=== PATIENT | male | born 1980 | race Caucasian/White ===

== ENCOUNTER 2023-03-09 01:48 | Emergency (ER) | payer OTHER, SELFPAY ==
[2023-03-09 02:00] VITALS: O2SAT 98
[2023-03-09 02:03] VITALS: BP 125/75; PULSE 70; RESP 18; TEMP 36.7; O2SAT 99; BMI 40.9
[2023-03-09 02:15] LABS: Appearance Urine Clear (Clear); Basophils Absolute Auto 0.03 K/uL (0.00-0.30); Basophils Percent Auto 0.4 % (0.0-3.0); Bilirubin Urine Negative (Negative); Blood Urine Negative (Negative); Color Urine Yellow (Yellow); Eosinophils Absolute Auto 0.19 K/uL (0.00-0.50); Eosinophils Percent Auto 2.7 % (0.0-7.0); Glucose Urine Negative (Negative); Hematocrit 45.7 % (37.0-53.0); Hemoglobin* 15.4 gm/dL (13.5-17.5); Immature Granulocytes Abs Auto 0.01 K/uL (0.00-0.30); Immature Granulocytes Pct Auto 0.1 %; Ketones Urine Negative (Negative); Leukocyte Esterase Urine Negative (Negative); Lymphocytes Absolute Auto 1.49 K/uL (0.90-2.90); Lymphocytes Percent Auto 21.3 % (20-44); Mean Corpuscular HGB Conc 34 gm/dL (32-36); Mean Corpuscular Hemoglobin 29 pg (26-34); Mean Corpuscular Volume 87 fL (80-100); Monocytes Percent Auto 7.4 % (0.0-11.0); Neutrophils Absolute Auto 4.77 K/uL (1.7-7.0); Neutrophils Percent Auto 68.1 % (42.0-72.0); Nitrite Urine Negative (Negative); Platelet Count* 299 K/uL (140-440); Protein Urine Negative (Negative); Red Blood Count 5.23 m/uL (4.30-5.90); Specific Gravity Urine <= 1.005 (1.000-1.030); Urobilinogen Urine 0.2 (0.2-1.0); White Blood Count* 7.01 K/uL (4.50-11.00)
--- NOTE | 2023-03-09 02:15 | ED.GENADULT ---
HPI - General Adult General Chief complaint: Chest Pain Stated complaint: heavy in the chest, weakness in body Time Seen by Provider: 03/09/23 02:02 History of Present Illness HPI narrative: CC: Chest Heaviness pt. with c/o since yesterday . whitney got worse about 2100 last night . denies shortness of breath, chest pain. 42-year-old man presenting to the emergency department with concern of chest pressure. This began couple evenings ago and then improved over the course of the day seemed recurred again this last evening. This was associated with a general sense of weakness. The weakness he describes as that feeling when your about to pass out. Admits that maybe he got more anxious also checking his blood pressure I believe measured 160 or 180 systolic. Does have a history of high blood pressure and about 6 months ago says was initiated on lisinopril. Does not describe renal disease or diabetes. No significant family history for cardiovascular disease. Has not had any cough or cold symptoms. Does have reflux sometimes but it has been awhile back this is not like that. At the time of this interview now he is feeling free of this pressure. Was never actually short of breath. No sense of palpitations or irregular heartbeats. 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 No radicular symptoms. No symptoms in the extremities. Related Data Home Medications Medication Instructions Recorded Confirmed lisinopril 20 mg tablet 20 mg PO DAILY 03/09/23 03/09/23 Allergies Allergy/AdvReac Type Severity Reaction Status Date / Time No Known Drug Allergies Allergy Verified 03/09/23 02:05 Review of Systems Status of ROS: Reports: 6 or more systems reviewed and unremarkable except as noted in History and below [facility] Medical History (Updated 03/09/23 @ 03:52 by Reyes Angel RN) Hypertension ?I10 - Essential (primary) hypertension (ICD-10) Surgical History (Updated 03/09/23 @ 03:52 by Reyes Angel RN) No significant past surgical history Social History Smoking Status: Never smoker Second hand tobacco smoke exposure: No How often do you have a drink containing alcohol: never How often do you have six or more drinks on one occasion: Never AUDIT-C Alcohol total score: 0 Non-prescribed substance use: denies use Exam Narrative: Exam Narrative: Is pleasant. NAD. Large man. Calm. Breathing easily. Lungs appear to be clear. Acneiform lesions scattered over his back. Lower extremities with some particular eruptions look almost like very small vazquez hemangiomas. No circumferential blanching. Mild dependent nonpitting edema in large lower extremities. Well-perfused generally. Moving all extremities without difficulty with good strength. Neck is supple. Hard to assess JVD. Heart in a regular rate and rhythm without murmur rub or gallop albeit a little bit distant. Abdomen is overweight soft nontender. Not able to reproduce any sense of chest pressure pain. Const: Vital Signs, click to edit/add: Vital Signs - 24 hr 03/09/23 02:00 03/09/23 02:03 03/09/23 03:30 Temperature 98.1 F Pulse Rate 63 Pulse Rate [Right Pulse Oximeter] 70 Respiratory Rate 18 18 Blood Pressure 135/74 Blood Pressure [Le ft Upper Arm] 125/75 Pulse Oximetry 98 99 96 Oxygen Delivery Me thod Room Air 03/09/23 03:50 Temperature 98.1 F Pulse Rate Pulse Rate [Right Pulse Oximeter] 63 Respiratory Rate 18 Blood Pressure Blood Pressure [Le ft Upper Arm] 135/74 Pulse Oximetry 96 Oxygen Delivery Me thod Room Air Documenting provider has reviewed patient's vital signs: yes Course Vital Signs Vital signs: Initial Vital Signs Pulse Oximetry 98 03/09/23 02:00 Vital Signs Pulse Oximetry 98 03/09/23 02:00 Temperature 98.1 F 03/09/23 03:50 Pulse Rate 63 03/09/23 03:50 Respiratory Rate 18 03/09/23 03:50 Blood Pressure 135/74 03/09/23 03:50 Pulse Oximetry 96 03/09/23 03:50 Oxygen Delivery Method Room Air 03/09/23 03:50 Medical Decision Making MDM Narrative Medical decision making narrative: By the time I am seeing Mr. Win EKG is already been done initial labs ordered consistent with chest pain complaint. We will watch on monitor. Differential includes pulmonary embolus ischemic cardiovascular event, pneumothorax or pneumomediastinum, pneumonia though rather unlikely given history. Suppose could be some atypical GERD. Intermittent pleuritis pericarditis costochondritis seems unlikely furthermore if costochondritis it is not reproducible. Labs are all normal including D-dimer. Chest x-ray reviewed by me looks normal as well. EKG as below. Was sleeping and monitored without event in the emergency department. I would say I did appreciate an occasional PVC on monitor but these did not seem to correlate with any of the symptoms. Unclear what this chest pressure is from. Does not appear to have had a recent cardiac event. May be primary or secondarily affected by some degree of anxiety as he offered. Unclear why initiated first-line on lisinopril. See patient discharge plan Lab Data Lab results reviewed: Yes I reviewed the patient's lab results Labs: Lab Results 03/09/23 03/09/23 03/09/23 Range/Units 02:01 02:05 02:10 WBC 7.01 (4.50-11.00) K/uL RBC 5.23 (4.30-5.90) m/uL Hgb 15.4 (13.5-17.5) gm/dL Hct 45.7 (37.0-53.0) % MCV 87 (80-100) fL MCH 29 (26-34) pg MCHC 34 (32-36) gm/dL RDW Coeff of Cole 13.0 (11.5-15.5) % Plt Count 299 (140-440) K/uL Neut % (Auto) 68.1 (42.0-72.0) % Lymph % (Auto) 21.3 (20-44) % Tyler % (Auto) 7.4 (0.0-11.0) % Eos % (Auto) 2.7 (0.0-7.0) % Baso % (Auto) 0.4 (0.0-3.0) % Neut # (Auto) 4.77 (1.7-7.0) K/uL Lymph # (Auto) 1.49 (0.90-2.90) K/uL Tyler # (Auto) 0.50 (0.00-0.90) K/UL Eos # (Auto) 0.19 (0.00-0.50) K/uL Baso # (Auto) 0.03 (0.00-0.30) K/uL Abs Immat Gran (auto) 0.01 (0.00-0.30) K/uL Imm/Tot Granulo (auto) 0.1 % D-Dimer Quant (PE/DVT) < 0.27 (0.00-0.50) ug/ml Sodium 138 (135-149) mmol/L Potassium 4.4 (3.6-5.1) mmol/L Chloride 108 (96-114) mmol/L Carbon Dioxide 21 (20-32) mmol/L Anion Gap 9 (7-15) mEq/L BUN 18 (5-24) mg/dL Creatinine 0.7 (0.5-1.5) mg/dL Estimated Creat Clear 158.53 Estimated GFR 119 ml/min Glucose 138 H (60-115) mg/dL Calcium 9.6 (8.4-10.6) mg/dL Troponin I < 0.01 L (0.01-0.04) ng/mL NT-Pro-B Natriuret Pep < 20 pg/mL Urine Color Yellow (Yellow) Urine Appearance Clear (Clear) Urine pH 6.0 (5.0-8.5) Ur Specific Floyd <= 1.005 (1.000-1.030) Urine Protein Negative (Negative) Urine Glucose (UA) Negative (Negative) Urine Ketones Negative (Negative) Urine Blood Negative (Negative) Urine Nitrite Negative (Negative) Urine Bilirubin Negative (Negative) Urine Urobilinogen 0.2 (0.2-1.0) Ur Leukocyte Esterase Negative (Negative) Urine RBC 0-2 (0-2) Urine WBC 0-2 (0-5) Ur Squamous Epith Cells Few (None-Few) Urine Bacteria None (None) Lab Acknowledgement POC Troponin I 0.00 L (0.01-0.04) ng/ml 03/09/23 Range/Units 02:40 WBC (4.50-11.00) K/uL RBC (4.30-5.90) m/uL Hgb (13.5-17.5) gm/dL Hct (37.0-53.0) % MCV (80-100) fL MCH (26-34) pg MCHC (32-36) gm/dL RDW Coeff of Cole (11.5-15.5) % Plt Count (140-440) K/uL Neut % (Auto) (42.0-72.0) % Lymph % (Auto) (20-44) % Tyler % (Auto) (0.0-11.0) % Eos % (Auto) (0.0-7.0) % Baso % (Auto) (0.0-3.0) % Neut # (Auto) (1.7-7.0) K/uL Lymph # (Auto) (0.90-2.90) K/uL Tyler # (Auto) (0.00-0.90) K/UL Eos # (Auto) (0.00-0.50) K/uL Baso # (Auto) (0.00-0.30) K/uL Abs Immat Gran (auto) (0.00-0.30) K/uL Imm/Tot Granulo (auto) % D-Dimer Quant (PE/DVT) (0.00-0.50) ug/ml Sodium (135-149) mmol/L Potassium (3.6-5.1) mmol/L Chloride (96-114) mmol/L Carbon Dioxide (20-32) mmol/L Anion Gap (7-15) mEq/L BUN (5-24) mg/dL Creatinine (0.5-1.5) mg/dL Estimated Creat Clear Estimated GFR ml/min Glucose (60-115) mg/dL Calcium (8.4-10.6) mg/dL Troponin I (0.01-0.04) ng/mL NT-Pro-B Natriuret Pep pg/mL Urine Color (Yellow) Urine Appearance (Clear) Urine pH (5.0-8.5) Ur Specific Floyd (1.000-1.030) Urine Protein (Negative) Urine Glucose (UA) (Negative) Urine Ketones (Negative) Urine Blood (Negative) Urine Nitrite (Negative) Urine Bilirubin (Negative) Urine Urobilinogen (0.2-1.0) Ur Leukocyte Esterase (Negative) Urine RBC (0-2) Urine WBC (0-5) Ur Squamous Epith Cells (None-Few) Urine Bacteria (None) Lab Acknowledgement Test Added POC Troponin I (0.01-0.04) ng/ml ECG Data Attestation: I personally reviewed and interpreted this ECG as follows: (I do review this EKG shows normal sinus rhythm rate of 69. I do not appreciate any acute ischemic changes.) Discharge Plan Discharge Clinical Impression: Chest pressure Patient Disposition: Home w/ Parent or Adult Condition: Improved Additional Instructions: Practice healthy living. I suppose it is a little hard to integrate into your job. Try to get a little heart pumping exercise daily and get quality and regular sleep. I would check in with a primary care provider to review your health and reasons for your visit here today. Looks like Dr. Durham is linked to your record somehow. Blood pressure looks excellent. Return for persistent and increased chest discomfort, associated lightheadedness or shortness of breath. Prescriptions: No Action lisinopril 20 mg tablet 20 mg PO DAILY Follow Up/Referrals: Cipriano Durham MD [Staff Physician] - Stand Alone Forms: [employer] Info Instructions
[2023-03-09 02:16] LABS: Slide Review Reflex No
[2023-03-09 02:25] LABS: RBC Urine 0-2 (0-2); Squamous Epithelial Cell Urine Few (None-Few); WBC Urine 0-2 (0-5)
[2023-03-09 02:28] LABS: Chloride* 108 mmol/L (96-114); Potassium* 4.4 mmol/L (3.6-5.1); Sodium* 138 mmol/L (135-149)
[2023-03-09 02:30] LABS: Creatinine* 0.7 mg/dL (0.5-1.5); Est. Creatinine Clearance* 158.53; Estimated Glomerular Filt Rate 119 ml/min
[2023-03-09 02:31] LABS: Anion Gap 9 mEq/L (7-15); Blood Urea Nitrogen* 18 mg/dL (5-24); Calcium* 9.6 mg/dL (8.4-10.6); Carbon Dioxide* 21 mmol/L (20-32); Glucose* 138 mg/dL (60-115)
--- NOTE | 2023-03-09 02:32 | CRLHL7_ITS ---
For Patients: As a result of the Century Cures Act, medical imaging exams and procedure reports are released immediately into your electronic medical record. You may view this report before your referring provider. If you have questions, please contact your health care provider. INDICATION: Chest heaviness. TECHNIQUE: Chest 1 view. COMPARISON: None. FINDINGS: Cardiovascular and mediastinum: Heart size and vasculature are normal in caliber and appearance. Lungs and pleural spaces: Lungs are clear. No sign of infiltrate or mass. No sign of pleural effusion. No pneumothorax. Bones and soft tissues: No significant findings. IMPRESSION: Unremarkable chest. Dictated by Bogdan Beavers MD @ 03/09/2023 3:37:09 AM (Electronically Signed)
[2023-03-09 02:34] LABS: D Dimer Quantitative* < 0.27 ug/ml (0.00-0.50)
[2023-03-09 02:56] LABS: Troponin I* < 0.01 ng/mL (0.01-0.04)
[2023-03-09 02:58] LABS: NT Pro B Type NatriureticPept* < 20 pg/mL
[2023-03-09 03:30] VITALS: BP 135/74; PULSE 63; RESP 18; O2SAT 96
[2023-03-09 03:45] VITALS: BP 135/74; PULSE 63; RESP 18; TEMP 36.7
[2023-03-09 03:50] VITALS: BP 135/74; PULSE 63; RESP 18; TEMP 36.7; O2SAT 96
== END 2023-03-09 03:45 | disposition home or self-care (01) ==
PROVIDERS: Emergency Provider Family Medicine
DX: R07.89 Other chest pain (principal)
CPT/HCPCS: 36415; 71045; 80048; 81001; 83880; 84484; 85025; 85379; 93005; 94761; 99284; 99285